=== PATIENT | female | born 1945 | race Caucasian/White ===

== ENCOUNTER → 2021-02-22 | Outpatient (CLI) | payer OTHER ==
[~2021-02-22] MED LIST: ATOR40TA PO; ERGO400 PO; LEVSOD50 PO; OXYACE5T PO; VENL25 PO
== END ==
LOC: LAB SHORT 11:06
DX: D48.5 Neoplasm of uncertain behavior of skin (principal)
CPT/HCPCS: 88305

== ENCOUNTER → 2024-09-05 | Outpatient (CLI) | payer OTHER ==
[2024-09-05 20:03] LABS: Adenovirus F 40/41 Not Detected (NOT DETECT); Astrovirus Not Detected (NOT DETECT); Campylobacter Sp Not Detected (NOT DETECT); Cryptosporidium Not Detected (NOT DETECT); Cyclospora Cayetanensis Not Detected (NOT DETECT); E. Coli O157 Not Detected (NOT DETECT); Entamoeba Histolytica Not Detected (NOT DETECT); Enteroaggregative E. coli-EAEC Not Detected (NOT DETECT); Enteropathogenic E. coli-EPEC Not Detected (NOT DETECT); Enterotoxigenic E. coli-ETEC Not Detected (NOT DETECT); Giardia Lamblia Not Detected (NOT DETECT); Norovirus GI/GII Not Detected (NOT DETECT); Plesiomonas Shigelloides Not Detected (NOT DETECT); Rotavirus A Not Detected (NOT DETECT); Salmonella Sp Not Detected (NOT DETECT); Sapovirus Not Detected (NOT DETECT); Shiga Toxin-prod E. coli-STEC Not Detected (NOT DETECT); Shigella/Enteroin E. coli-EIEC Not Detected (NOT DETECT); Vibrio Cholerae Not Detected (NOT DETECT); Vibrio Sp Not Detected (NOT DETECT); Yersinia Enterocolitica Not Detected (NOT DETECT)
== END | disposition home or self-care (01) ==
LOC: LAB 14:00 → LAB SHORT 14:00
PROVIDERS: Family Medicine
DX: R19.7 Diarrhea, unspecified (principal)
CPT/HCPCS: 87507

== ENCOUNTER 2024-09-28 06:28 | Observation (INO) | payer OTHER ==
[~2024-09-28] VITALS: Ht 157.5 cm; Wt 63.0 kg
[~2024-09-28 06:28] MED LIST changes: +EUTHYROX125 MCG PO; -LEVSOD50 PO; +VENL150ER PO; -VENL25 PO
[2024-09-28] MEDS ORDERED: ZOLP10 PO (07:32)
[2024-09-28] MEDS ORDERED: Simvastatin10 MG PO (07:32)
[2024-09-28 07:33] LABS: BASOPHILS ABSOLUTE AUTO 0.04 K/mm3 (0.00-0.23); BASOPHILS PERCENT AUTO 1 % (0-2); EOSINOPHILS ABSOLUTE AUTO 0.12 K/mm3 (0.00-0.68); EOSINOPHILS PERCENT AUTO 3 % (0-6); Hematocrit 42.1 % (33.0-51.0); Hemoglobin 14.1 g/dL (11.5-16.0); IMMATURE GRAN ABSOLUTE AUTO 0.01 K/mm3 (0.00-0.10); IMMATURE GRAN PERCENT AUTO 0 % (0-1); LYMPHOCYTES ABSOLUTE AUTO 1.28 K/mm3 (0.84-5.20); LYMPHOCYTES PERCENT AUTO 26 % (21-46); MONOCYTES ABSOLUTE AUTO 0.37 K/mm3 (0.16-1.47); MONOCYTES PERCENT AUTO 8 % (4-13); Mean Corpuscular HGB 29.1 pg (26.0-34.0); Mean Corpuscular HGB Conc 33.5 g/dL (31.5-36.5); Mean Corpuscular Volume 87 fL (80-100); Mean Platelet Volume 10.7 fL (9.1-12.4); NEUTROPHILS ABSOLUTE AUTO 3.04 K/mm3 (1.96-9.15); NEUTROPHILS PERCENT AUTO 63 % (41-73); Platelet Count 229 K/mm3 (150-400); RDW Coefficient Variation 13.3 % (11.7-14.2); Red Blood Cell Count 4.84 M/mm3 (3.80-5.20); White Blood Cell Count 4.86 K/mm3 (4.00-11.30)
[2024-09-28] MEDS ORDERED: EUTHYROX125 MCG (07:33)
[2024-09-28 07:42] LABS: Bun/Creatinine Ratio 16.3 (12.0-20.0); Calcium, Blood 8.5 mg/dL (8.5-10.1); Creatinine, Blood 0.8 mg/dL (0.40-1.00); Magnesium, Blood 2.1 mg/dL (1.6-2.4); Potassium, Blood 3.8 mmol/L (3.5-5.5)
[2024-09-28] MEDS ORDERED: FLU VACC TS2024-25(6MOS UP)/PF 45 MCG/0.5 ML SYRINGE IM PRN (11:15)
[2024-09-28 12:14] VITALS: BP 145/83
[2024-09-28 12:31] LABS: Cholesterol 293 mg/dL (50-200); HDL Cholesterol 98 mg/dL (>39); LDL/HDL RATIO 1.7; Low Density Lipoprotein Chol 165 mg/dL (0-110); Triglycerides 148 mg/dL (30-160); Very Low Density Lipoprot Chol 29 mg/dL (6-32)
[2024-09-28] MEDS ORDERED: Zolpidem Tartrate 5 MG Tab PO PRN (13:00)
[2024-09-28] MEDS ORDERED: Levothyroxine Sodium 0.137 MG Tab PO SCH (13:00)
[2024-09-28 15:45] VITALS: BP 134/94
--- NOTE | 2024-09-28 16:14 | NUR ---
SHIFT SUMMARY PT A&OX4, COOPERATIVE, ABLE TO MAKE NEEDS KNOWN. VERY PLEASANT TODAY. DOES COMPLAIN OF PAIN FROM LEFT RIB, UNDER LEFT BREAST, TO LEFT ARM, REFUSED PAIN MEDICATION. AMBULATES IN ROOM, IN BEDSIDE. SUPPOSED TO BE NPO AT MIDNIGHT FOR STRESS TEST TOMORROW AND ECHO. TELE RUNNING SR 63. BED IN LOWEST POSITION, CALL LIGHT WITHIN REACH.
[2024-09-28 19:38] VITALS: BP 132/85
[2024-09-29 02:54] VITALS: BP 139/89
--- NOTE | 2024-09-29 05:37 | NUR ---
SHIFT SUMMARY PT IS ALERT AND ORIENTED TIMES 4, ABLE TO MAKE NEEDS KNOWN. PT IS ABLE TO AMBULATE TO RESTROOM AND ABOUT THE ROOM. ADMITTED FOR PROGRESSIVELY WORSENING CHEST PAIN. HX HYPOTHYROIDISM. PAIN HAS RADIATED FROM LEFT SIDE OF CHEST JUST BELOW BREAST TO LEFT EAR, AND NOW HAS MOVED TO LEFT ARM. PT DENIES DYSPNEA, VOMIT, DYSURIA, FEVER, OR RASH. PT TO HAVE A STRESS TEST IN AM. PT APPEARS TO HAVE SLEPT THROUGH THE NIGHT WITHOUT ISSUE. BED IN LOW POSITION, RAILS TIMES 2, CALL LIGHT WITHIN REACH.
[2024-09-29 07:23] VITALS: BP 122/70
[2024-09-29] MEDS ORDERED: Venlafaxine HCl 75 MG CapCR PO SCH (09:00)
[2024-09-29] MEDS ORDERED: Pravastatin Sodium 20 MG Tab PO SCH (09:00)
[2024-09-29] MEDS ORDERED: Lactated Ringer's 1,000 ML IV SCH (12:15)
[2024-09-29] MEDS ORDERED: Aminophylline 250MG / 10ML 10 ML Vial ONE (13:34)
[2024-09-29] MEDS ORDERED: Regadenoson 0.4 MG/5 ML SYRINGE ONE (13:34)
[2024-09-29 15:55] VITALS: BP 134/83
--- NOTE | 2024-09-29 17:19 | NUR ---
DISCHARGE 1510 PT A&OX4, COOPERATIVE, ABLE TO MAKE NEEDS KNOWN. IV DC'D BY MARCIO DUDLEY. THIS NURSE WENT OVER DISCHARGE PAPERS WITH PATIENT AND INFORMED ABOUT CALLING PCP TO SCHEDULE AN APPOINTMENT. PT OFFERED A WHEELCHAIR AND REFUSED, WALKED OUT WITH BELONGINGS IN HAND.
== END 2024-09-29 17:09 | disposition home or self-care (01) ==
LOC: ER 06:28 → MEDS 06:29
PROVIDERS: Emergency Medicine; ADMIT Family Medicine
DX: R07.89 Other chest pain (principal); E78.5 Hyperlipidemia, unspecified; K52.9 Noninfective gastroenteritis and colitis, unspecified; G47.00 Insomnia, unspecified; F32.A Depression, unspecified; E03.9 Hypothyroidism, unspecified; Z87.891 Personal history of nicotine dependence; Z79.890 Hormone replacement therapy; Z79.899 Other long term (current) drug therapy
CPT/HCPCS: 71046; 78452; 80048; 80061; 83036; 83735; 84439; 84443; 84481; 84484; 85025; 93005; 93010; 93017; 93306; 99284-25; A9270; A9500; G0378; J0280; J2785; J7120